=== PATIENT | female | born 1995 | race African-American/Black ===

== ENCOUNTER 2019-10-23 23:21 | Emergency (ER) | payer OTHER ==
[2019-10-24 00:29] LABS: HEMATOCRIT 35.2 % (32.4-45.2); HEMOGLOBIN 11.9 GM/dL (10.7-15.3); MCH 29.7 pg (25.7-33.7); MCHC 33.8 g/dl (32.0-36.0); MEAN CELL VOLUME 87.8 fl (80-96); MEAN PLT VOLUME 7.3 fl (7.5-11.1); PLATELET COUNT 244 K/MM3 (134-434); RBC 4.01 M/mm3 (3.60-5.2); RDW 15.2 % (11.6-15.6); WHITE BLOOD COUNT 5.1 K/mm3 (4.0-10.0)
[2019-10-24] MEDS ORDERED: IBUPROFEN 600 MG TABLET (FP) PO ONE ×2 (00:51→00:58)
[2019-10-24 02:19] VITALS: BP 111/59; PULSE 78; TEMP 97.9; BMI 31.1
[2019-10-25] MEDS ORDERED: ALBUTEROL SO4 2.5/IPRATROPIUM 0.5 INH SOL 3 ML VIAL.NEB. NEB ONE (13:56)
[2019-10-25] MEDS ORDERED: ACETAMINOPHEN INJECTION 100 ML IVPB ONE (13:57)
[2019-10-25] MEDS ORDERED: ONDANSETRON 4 MG/2 ML VIAL ONE (13:57)
--- NOTE | 2019-10-27 20:09 | PDOC ---
Documentation entered by Eliana Ruff SCRIBE, acting as scribe for Antonia Galeana MD. Antonia Galeana MD: This documentation has been prepared by the bearibeSpeedy Lincy, SCRIBE, under my direction and personally reviewed by me in its entirety. I confirm that the documentation accurately reflects all work, treatment, procedures, and medical decision making performed by me. History of Present Illness - General Chief Complaint: Chest Pain Stated Complaint: CHEST PAIN Time Seen by Provider: 10/24/19 00:02 History Source: Patient Exam Limitations: No Limitations - History of Present Illness Initial Comments: 10/24/19 00:27 The patient is a 24-year-old female with no reported past medical history who presents to the emergency department with chest pain. The patient presents with right-sided chest pain. The patient reports a similar episodes of right-sided chest pain when she was 18 years of age after getting an . The patient reports following up with PCP for the chest pain, reports having EKGs did, which were unremarkable. The patient reports she recently had a miscarriage. The patient states about 4 days ago, she started to have heavy vaginal bleeding , and 2 days later, she reports passing products. Since then, shes been having minimal vaginal bleeding associated with minimal abdominal pain. Denies shortness of breath. Past History - Past Medical History Allergies/Adverse Reactions: Allergies Allergy/AdvReac Type Severity Reaction Status Date / Time No Known Allergies Allergy Verified 10/24/19 00:38 Review of Systems - Review of Systems Able to Perform ROS?: Yes Comments:: 10/24/19 00:34 GENERAL/CONSTITUTIONAL: No fever or chills. No weakness. HEAD, EYES, EARS, NOSE AND THROAT: No change in vision. No ear pain or discharge. No sore throat. CARDIOVASCULAR: +chest pain. No shortness of breath. RESPIRATORY: No cough, wheezing, or hemoptysis. GASTROINTESTINAL: No nausea, vomiting, diarrhea or constipation. GENITOURINARY: No dysuria, frequency, or change in urination. MUSCULOSKELETAL: No joint or muscle swelling or pain. No neck or back pain. SKIN: No rash NEUROLOGIC: No headache, vertigo, loss of consciousness, or change in strength/ sensation. ENDOCRINE: No increased thirst. No abnormal weight change. HEMATOLOGIC/LYMPHATIC: No anemia, easy bleeding, or history of blood clots. ALLERGIC/IMMUNOLOGIC: No hives or skin allergy. *Physical Exam - Vital Signs Last Vital Signs Temp Pulse Resp BP Pulse Ox 97.9 F 78 16 111/59 L 100 10/23/19 23:25 10/23/19 23:25 10/23/19 23:25 10/23/19 23:25 10/23/19 23:25 - Physical Exam Comments: 10/24/19 00:35 GENERAL: Awake, alert, and fully oriented, in no acute distress HEAD: No signs of trauma EYES: PERRLA, EOMI, sclera anicteric, conjunctiva clear ENT: Auricles normal inspection, hearing grossly normal, nares patent, oropharynx clear without exudates. Moist mucosa NECK: Normal ROM, supple. LUNGS: Breath sounds equal, clear to auscultation bilaterally. No wheezes, and no crackles HEART: Regular rate and rhythm. ABDOMEN: Soft, nontender, nondistended. EXTREMITIES: Normal range of motion, no edema. NEUROLOGICAL: Cranial nerves II through XII grossly intact. Normal speech, normal gait SKIN: Warm, Dry, normal turgor, no rashes or lesions noted. ED Treatment Course - LABORATORY CBC & Chemistry Diagram: 10/24/19 00:20 - ADDITIONAL ORDERS Additional order review: 10/24/19 00:20 RBC 4.01 MCV 87.8 MCHC 33.8 RDW 15.2 MPV 7.3 L - Medications Given in the ED: ED Medications Discontinued Medications Generic Name Dose Route Start Last Admin Trade Name Freq PRN Reason Stop Dose Admin Ibuprofen 600 mg 10/24/19 00:51 10/24/19 01:00 Motrin - PO 10/24/19 00:52 600 mg ONCE ONE Administration Medical Decision Making - Medical Decision Making 10/24/19 00:24 Pt has right sided CP; she wants it checked out because she had a spontaneous miscarriage 2 days ago. She states that she had a similar CP when she was 18yo and had an . 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 10/24/19 00:46 CBC normal beta quant pending 10/27/19 20:09 HCG is 888; she knows that she needs to follow the bhcg down to zero Discharge - Discharge Information Problems reviewed: Yes Clinical Impression/Diagnosis: Chest pain Condition: Improved Disposition: HOME - Follow up/Referral Referrals: Leanne Walker MD [Primary Care Provider] - - Patient Discharge Instructions Patient Printed Discharge Instructions: DI for Atypical Chest Pain - Post Discharge Activity
--- NOTE | 2019-12-24 10:52 | EKG ---
Test Reason : Blood Pressure : / mmHG Vent. Rate : 077 BPM Atrial Rate : 077 BPM P-R Int : 126 ms QRS Dur : 084 ms QT Int : 364 ms P-R-T Axes : 065 065 055 degrees QTc Int : 411 ms NORMAL SINUS RHYTHM NORMAL ECG NO PREVIOUS ECGS AVAILABLE Confirmed by ANGELA HALL MD ([id number]) on 10/27/2019 3:56:25 PM Also confirmed by ANGELA HALL MD ([id number]), medical editor FLOR ALTAMIRANO ([id number]) on 12/24/2019 10:52:00 AM Referred By: Confirmed By:ANGELA HALL MD
== END 2019-10-24 01:05 | disposition home or self-care (01) ==
LOC: JER 23:21
DX: R07.9 Chest pain, unspecified (principal)
CPT/HCPCS: 36415; 84702; 85027; 93005; 93010; 99281-25